=== PATIENT | male | born 1965 | race African-American/Black ===

== ENCOUNTER 2016-07-16 12:54 | Inpatient (IN) | payer MEDICARE, MEDICAID ==
[~2016-07-16] VITALS: Ht 188 cm; Wt 103.3 kg
[~2016-07-16 12:54] MED LIST: AMLO-511 PO; FLUO-191 PO; QUET200T PO
[2016-07-16 13:09] VITALS: BP 128/93
[2016-07-16] MEDS ORDERED: HALOPERIDOL 5 MG TABLET PO PRN (13:45)
[2016-07-16] MEDS ORDERED: ZOLPIDEM TARTRATE 10 MG TABLET PO PRN (13:45)
[2016-07-16 16:13] VITALS: BP 138/83
[2016-07-16] MEDS: QUEtiapine FUMARATE 200 MG TABLET PO SCH (20:05)
[2016-07-17 01:39] VITALS: BP 135/77
[2016-07-17] MEDS ORDERED: -PHARMACY VACCINE NOTE- MISC ONE ×2 (02:15)
[2016-07-17 07:46] LABS: BASOPHILS % (AUTO) 0.6 % (0.0-2.0); EOSINOPHILS % (AUTO) 5.2 % (1.0-6.0); HEMOGLOBIN 12.5 g/dL (13.5-17.5); LYMPHOCYTES % (AUTO) 32.6 % (22.0-44.0); MEAN CORPUSCULAR HEMOGLOBIN 25.9 pg (26.0-34.0); MEAN CORPUSCULAR HGB CONC 32.1 G/dL (31.0-37.0); MEAN CORPUSCULAR VOLUME 81 fL (80-100); MONOCYTES # (AUTO) 0.9 K/uL (0.1-1.0); MONOCYTES % (AUTO) 9.4 % (2.0-9.0); NEUTROPHILS # (AUTO) 4.8 K/uL (1.8-7.7); NEUTROPHILS % (AUTO) 52.2 % (40.0-70.0); PLATELET COUNT (AUTO) 205 K/uL (150-450); RED BLOOD CELL COUNT(AUTO) 4.84 MIL/uL (4.50-5.90); WHITE BLOOD COUNT (AUTO) 9.2 K/uL (4.5-11.0)
[2016-07-17 08:11] LABS: ALANINE AMINOTRANSFERASE 46 U/L (12-78); ALBUMIN 3.4 g/dL (3.4-5.0); ANION GAP 8 mmol/L (8-16); ASPARTATE AMINOTRANSFERASE 50 U/L (15-37); BILIRUBIN,TOTAL 0.3 mg/dL (0.1-1.0); CALCIUM, TOTAL 8.5 mg/dL (8.8-10.5); CARBON DIOXIDE 33 mmol/L (22-29); CHLORIDE 102 mmol/L (98-107); CREATININE 1.24 mg/dL (0.60-1.30); GLOMERULAR FILTR. RATE CALC > 60 mL/min (>60); SODIUM SERUM 143 mmol/L (136-145); UREA NITROGEN, BLOOD 17 mg/dL (7-18)
[2016-07-17 08:13] VITALS: BP 110/69
[2016-07-17 08:22] LABS: POTASSIUM 2.9 mmol/L (3.5-5.1)
[2016-07-17 08:41] LABS: APPEARANCE,URINE CLOUDY (CLEAR); GLUCOSE, URINE (UA) NEGATIVE (NEGATIVE); KETONES,URINE TRACE mg/dL (NEGATIVE); LEUKOCYTE ESTERASE ,URINE NEGATIVE (NEGATIVE); OCCULT BLOOD,URINE NEGATIVE (NEGATIVE); PROTEIN,URINE POS 1+ (NEGATIVE)
[2016-07-17 08:43] LABS: ADD UA MICROSCOPIC YES
[2016-07-17] MEDS ORDERED: POTASSIUM CHLORIDE 20 MEQ ER TABLET PO ONE (08:45)
[2016-07-17] MEDS: FLUoxetine HCL 20 MG CAPSULE PO SCH (08:48)
[2016-07-17] MEDS: QUEtiapine FUMARATE 200 MG TABLET PO SCH ×2 (08:48→20:14)
[2016-07-17 08:53] LABS: FINE GRANULAR CASTS,URINE 0-2 /LPF (None Seen); HYALINE CASTS, URINE 0-2 /LPF (None Seen); RBC,URINE None Seen /HPF (0-2); SQUAMOUS EPITHELIAL CELL,UR Few /LPF (None Seen); WBC,URINE 0-2 /HPF (0-5)
[2016-07-17] MEDS ORDERED: ACETAMINOPHEN 325 MG TABLET PO PRN (10:30)
[2016-07-17] MEDS ORDERED: IBUPROFEN 400 MG TABLET PO PRN (10:30)
[2016-07-17 16:12] VITALS: BP 135/78
[2016-07-17] MEDS: FERROUS SULFATE 325 MG EC TABLET PO SCH (16:31)
[2016-07-18 00:13] VITALS: BP 119/75
[2016-07-18] MEDS: FERROUS SULFATE 325 MG EC TABLET PO SCH ×2 (06:01→16:16)
[2016-07-18 08:07] LABS: HEMOGLOBIN A1C 5.7 % (4.5-6.2)
[2016-07-18 08:51] LABS: CHOL/HDL RATIO 5.7 (4.2-7.3); POTASSIUM 3.5 mmol/L (3.5-5.1); THYROID STIMULATING HORMONE 0.39 uIU/mL (0.36-3.74)
[2016-07-18 09:30] VITALS: BP 140/80
[2016-07-18] MEDS: AmLODIPine BESYLATE 5 MG TABLET PO SCH (09:34)
[2016-07-18] MEDS: QUEtiapine FUMARATE 200 MG TABLET PO SCH ×2 (09:35→20:02)
[2016-07-18] MEDS: FLUoxetine HCL 20 MG CAPSULE PO SCH (09:35)
[2016-07-18 16:20] VITALS: BP 130/71
[2016-07-19 03:00] VITALS: BP 114/79
[2016-07-19] MEDS: LORazepam 2 MG TABLET PO PRN ×2 (03:07→08:57)
[2016-07-19] MEDS: FERROUS SULFATE 325 MG EC TABLET PO SCH (06:13)
[2016-07-19 08:30] VITALS: BP 155/90
[2016-07-19] MEDS: QUEtiapine FUMARATE 200 MG TABLET PO SCH (08:57)
[2016-07-19] MEDS: FLUoxetine HCL 20 MG CAPSULE PO SCH (08:57)
[2016-07-19] MEDS: AmLODIPine BESYLATE 5 MG TABLET PO SCH (08:57)
[2016-07-19] MEDS ORDERED: FLUO-191 PO (09:15)
[2016-07-19] MEDS ORDERED: QUET200T29 PO (09:15)
[2016-07-19] MEDS ORDERED: FERS325 PO (09:24)
== END 2016-07-19 09:50 | disposition home or self-care (01) | DRG 885 ==
LOC: B2X 13:41 → EDSTATUS 14:06
DX: F25.1 Schizoaffective disorder, depressive type (principal); R45.851 Suicidal ideations; R74.0 Nonspecific elevation of levels of transaminase and lactic acid dehydrogenase [LDH]; D64.9 Anemia, unspecified; E87.6 Hypokalemia; I10 Essential (primary) hypertension; F31.9 Bipolar disorder, unspecified; F15.90 Other stimulant use, unspecified, uncomplicated; Z98.890 Other specified postprocedural states; Z71.51 Drug abuse counseling and surveillance of drug abuser; Z91.5 Personal history of self-harm; Z83.3 Family history of diabetes mellitus; Z82.49 Family history of ischemic heart disease and other diseases of the circulatory system
CPT/HCPCS: 83036; 84132; 84443

== ENCOUNTER 2016-08-14 02:41 | Inpatient (IN) | payer MEDICARE, OTHER ==
[~2016-08-14] VITALS: Ht 180.3 cm; Wt 90.9 kg
[~2016-08-14 02:41] MED LIST changes: +FERR-89 PO; +QUET200T29 PO
[2016-08-14 03:41] LABS: BASOPHILS % (AUTO) 0.3 % (0.0-2.0); EOSINOPHILS % (AUTO) 0.8 % (1.0-6.0); HEMATOCRIT 38.6 % (41-53); HEMOGLOBIN 12.2 g/dL (13.5-17.5); LYMPHOCYTES # (AUTO) 2.1 K/uL (1.0-4.8); LYMPHOCYTES % (AUTO) 17.2 % (22.0-44.0); MEAN CORPUSCULAR HEMOGLOBIN 25.2 pg (26.0-34.0); MEAN CORPUSCULAR HGB CONC 31.4 G/dL (31.0-37.0); MEAN CORPUSCULAR VOLUME 80 fL (80-100); MONOCYTES # (AUTO) 1.2 K/uL (0.1-1.0); MONOCYTES % (AUTO) 10.1 % (2.0-9.0); NEUTROPHILS # (AUTO) 8.7 K/uL (1.8-7.7); NEUTROPHILS % (AUTO) 71.6 % (40.0-70.0); PLATELET COUNT (AUTO) 205 K/uL (150-450); RED BLOOD CELL COUNT(AUTO) 4.83 MIL/uL (4.50-5.90); RED CELL DISTRIBUTION WIDTH 13.4 % (11.5-14.5); WHITE BLOOD COUNT (AUTO) 12.2 K/uL (4.5-11.0)
[2016-08-14] MEDS ORDERED: ZOLPIDEM TARTRATE 10 MG TABLET PO PRN (04:00)
[2016-08-14] MEDS ORDERED: HALOPERIDOL 5 MG TABLET PO PRN (04:00)
[2016-08-14] MEDS ORDERED: LORazepam 2 MG TABLET PO PRN (04:00)
[2016-08-14 04:08] LABS: ALANINE AMINOTRANSFERASE 57 U/L (12-78); ALBUMIN 3.7 g/dL (3.4-5.0); ANION GAP 9 mmol/L (8-16); ASPARTATE AMINOTRANSFERASE 76 U/L (15-37); BILIRUBIN,TOTAL 0.4 mg/dL (0.1-1.0); CALCIUM, TOTAL 8.8 mg/dL (8.8-10.5); CARBON DIOXIDE 31 mmol/L (22-29); CHLORIDE 103 mmol/L (98-107); GLOMERULAR FILTR. RATE CALC 38 mL/min (>60); SODIUM SERUM 143 mmol/L (136-145); TOTAL PROTEIN, SERUM 8.1 g/dL (6.4-8.2); UREA NITROGEN, BLOOD 20 mg/dL (7-18)
[2016-08-14 04:10] LABS: POTASSIUM 2.3 mmol/L (3.5-5.1)
[2016-08-14] MEDS ORDERED: SODIUM CHLORIDE 0.9% 1,000 ML IV ONE ×2 (04:15→04:30)
[2016-08-14] MEDS ORDERED: POTASSIUM CHLORIDE 10% 40 MEQ/30 ML LIQUID UDCUP PO ONE (04:15)
[2016-08-14] MEDS: POTASSIUM CHL 10 MEQ/WATER 50 ML IV SCH ×2 (04:39→09:33)
[2016-08-14 08:20] LABS: CALCIUM, TOTAL 8.4 mg/dL (8.8-10.5); CHOL/HDL RATIO 3.2 (4.2-7.3); CREATININE 2.04 mg/dL (0.60-1.30)
[2016-08-14 08:57] LABS: ADD UA MICROSCOPIC YES; APPEARANCE,URINE CLEAR (CLEAR); GLUCOSE, URINE (UA) NEGATIVE (NEGATIVE); KETONES,URINE NEGATIVE (NEGATIVE); LEUKOCYTE ESTERASE ,URINE NEGATIVE (NEGATIVE); OCCULT BLOOD,URINE TRACE (NEGATIVE); PROTEIN,URINE SEE CONFIRM (NEGATIVE)
[2016-08-14 08:59] LABS: SULFOSALICYLIC ACID,URINE 1+ (Negative)
[2016-08-14 09:01] LABS: WBC,URINE 0-2 /HPF (0-5)
[2016-08-14 09:24] LABS: POTASSIUM 2.7 mmol/L (3.5-5.1)
[2016-08-14] MEDS ORDERED: POTASSIUM CHLORIDE 20 MEQ ER TABLET PO ONE ×2 (09:30→12:30)
[2016-08-14 12:04] LABS: CALCIUM, TOTAL 8.3 mg/dL (8.8-10.5); CREATININE 1.96 mg/dL (0.60-1.30)
[2016-08-14 12:09] LABS: POTASSIUM 2.6 mmol/L (3.5-5.1)
[2016-08-14] MEDS ORDERED: ACETAMINOPHEN 325 MG TABLET PO PRN ×2 (15:00→20:00)
[2016-08-14] MEDS ORDERED: 0.9% SODIUM CHLORIDE 10 ML SYRINGE IVP PRN (15:00)
[2016-08-14] MEDS ORDERED: ONDANSETRON HCL 4 MG/2 ML VIAL IVP PRN (15:00)
[2016-08-14] MEDS ORDERED: BISACODYL 10 MG RECTAL RECTAL SUPPOSITORY PR PRN (20:00)
[2016-08-14] MEDS ORDERED: ALBUTEROL SULFATE 2.5 MG/0.5 ML NEB SOLUTION NEB PRN (20:00)
[2016-08-14] MEDS: DOCUSATE SODIUM 100 MG CAPSULE PO SCH (20:39)
[2016-08-14] MEDS: QUEtiapine FUMARATE 300 MG TABLET PO SCH (20:39)
[2016-08-14] MEDS: AmLODIPine BESYLATE 5 MG TABLET PO SCH (21:30)
[2016-08-14] MEDS: SODIUM CHLORIDE 0.45% 1,000 ML IV SCH (23:30)
[2016-08-14] MEDS: POTASSIUM CHL 10 MEQ/WATER 50 ML IV PRN (23:36)
[2016-08-14 23:43] VITALS: BP 120/74
[2016-08-15] MEDS: POTASSIUM CHL 10 MEQ/WATER 50 ML IV PRN ×11 (00:28→23:41)
[2016-08-15 05:08] VITALS: BP 113/73
[2016-08-15 07:34] LABS: BASOPHILS # (AUTO) 0.07 K/uL (0.00-0.20); BASOPHILS % (AUTO) 0.7 % (0.0-2.0); EOSINOPHILS # (AUTO) 0.44 K/uL (0.00-0.70); EOSINOPHILS % (AUTO) 4.41 % (1.0-6.0); HEMATOCRIT 35.6 % (41-53); HEMOGLOBIN 11.9 g/dL (13.5-17.5); LYMPHOCYTES # (AUTO) 2.5 K/uL (1.0-4.8); MEAN CORPUSCULAR HEMOGLOBIN 26.5 pg (26.0-34.0); MEAN CORPUSCULAR HGB CONC 33.4 G/dL (31.0-37.0); MEAN CORPUSCULAR VOLUME 79 fL (80-100); MONOCYTES % (AUTO) 9.7 % (2.0-9.0); NEUTROPHILS # (AUTO) 5.9 K/uL (1.8-7.7); NEUTROPHILS % (AUTO) 60.2 % (40.0-70.0); PLATELET COUNT (AUTO) 219 K/uL (150-450); RED BLOOD CELL COUNT(AUTO) 4.48 MIL/uL (4.50-5.90); RED CELL DISTRIBUTION WIDTH 13.2 % (11.5-14.5); WHITE BLOOD COUNT (AUTO) 9.9 K/uL (4.5-11.0)
[2016-08-15 07:53] LABS: ANION GAP 10 mmol/L (8-16); CALCIUM, TOTAL 8.3 mg/dL (8.8-10.5); CARBON DIOXIDE 29 mmol/L (22-29); CHLORIDE 106 mmol/L (98-107); CREATININE 1.45 mg/dL (0.60-1.30); GLOMERULAR FILTR. RATE CALC > 60 mL/min (>60); SODIUM SERUM 145 mmol/L (136-145); UREA NITROGEN, BLOOD 17 mg/dL (7-18)
[2016-08-15 08:19] VITALS: BP 107/58
[2016-08-15 08:26] LABS: POTASSIUM 2.9 mmol/L (3.5-5.1)
[2016-08-15] MEDS: QUEtiapine FUMARATE 100 MG TABLET PO SCH (08:55)
[2016-08-15] MEDS: AmLODIPine BESYLATE 5 MG TABLET PO SCH (08:55)
[2016-08-15] MEDS: DOCUSATE SODIUM 100 MG CAPSULE PO SCH ×2 (08:55→20:31)
[2016-08-15] MEDS: PANTOPRAZOLE SODIUM 40 MG DR TABLET PO SCH (08:55)
[2016-08-15] MEDS: SODIUM CHLORIDE 0.45% 1,000 ML IV SCH ×2 (09:01→17:36)
[2016-08-15 11:29] VITALS: BP 110/59
[2016-08-15 15:58] VITALS: BP 115/61
[2016-08-15 20:08] VITALS: BP 123/63
[2016-08-15] MEDS: QUEtiapine FUMARATE 300 MG TABLET PO SCH (20:31)
[2016-08-16] VITALS (7 sets, daily range): BP systolic 118–130; BP diastolic 60–85
[2016-08-16] MEDS: SODIUM CHLORIDE 0.45% 1,000 ML IV SCH ×3 (01:00→23:59)
[2016-08-16] MEDS: DOCUSATE SODIUM 100 MG CAPSULE PO SCH ×2 (08:15→20:28)
[2016-08-16] MEDS: QUEtiapine FUMARATE 100 MG TABLET PO SCH (08:15)
[2016-08-16] MEDS: PANTOPRAZOLE SODIUM 40 MG DR TABLET PO SCH (08:15)
[2016-08-16] MEDS: AmLODIPine BESYLATE 5 MG TABLET PO SCH (08:15)
[2016-08-16] MEDS: POTASSIUM CHL 10 MEQ/WATER 50 ML IV PRN ×2 (08:16→10:26)
[2016-08-16] MEDS ORDERED: SODIUM CHLORIDE 0.9% 500 ML IV ONE (10:20)
[2016-08-16] MEDS: POTASSIUM CHLORIDE 10% 40 MEQ/30 ML LIQUID UDCUP PO SCH ×2 (12:09→20:28)
[2016-08-16] MEDS: OxyCODONE HCL/ACETAMINOPHEN 5-325 MG TABLET PO PRN (20:28)
[2016-08-16] MEDS: QUEtiapine FUMARATE 200 MG TABLET PO SCH (20:32)
[2016-08-17 04:31] VITALS: BP 123/55
[2016-08-17 07:15] LABS: ANION GAP 8 mmol/L (8-16); CALCIUM, TOTAL 8.6 mg/dL (8.8-10.5); CARBON DIOXIDE 31 mmol/L (22-29); CHLORIDE 103 mmol/L (98-107); CREATININE 1.19 mg/dL (0.60-1.30); GLOMERULAR FILTR. RATE CALC > 60 mL/min (>60); POTASSIUM 3.1 mmol/L (3.5-5.1); SODIUM SERUM 142 mmol/L (136-145); UREA NITROGEN, BLOOD 10 mg/dL (7-18)
[2016-08-17 07:23] VITALS: BP 115/68
[2016-08-17] MEDS: SODIUM CHLORIDE 0.45% 1,000 ML IV SCH (08:00)
[2016-08-17] MEDS: DOCUSATE SODIUM 100 MG CAPSULE PO SCH ×3 (09:00→10:00)
[2016-08-17] MEDS: FLUoxetine HCL 20 MG CAPSULE PO SCH ×3 (09:00→11:20)
[2016-08-17] MEDS: POTASSIUM CHLORIDE 10% 40 MEQ/30 ML LIQUID UDCUP PO SCH ×3 (09:00→10:00)
[2016-08-17] MEDS: PANTOPRAZOLE SODIUM 40 MG DR TABLET PO SCH ×3 (09:00→10:00)
[2016-08-17] MEDS: QUEtiapine FUMARATE 200 MG TABLET PO SCH ×4 (09:00→20:08)
[2016-08-17] MEDS: QUEtiapine FUMARATE 100 MG TABLET PO SCH ×2 (09:00→09:28)
[2016-08-17] MEDS: OxyCODONE HCL/ACETAMINOPHEN 5-325 MG TABLET PO PRN ×2 (09:30→10:23)
[2016-08-17] MEDS: POTASSIUM CHLORIDE 20 MEQ ER TABLET PO PRN ×3 (09:31→11:19)
[2016-08-17 10:49] VITALS: BP 131/90
[2016-08-17 14:58] VITALS: BP 141/96
[2016-08-17 20:17] VITALS: BP 123/65
[2016-08-17 23:58] VITALS: BP 139/76
[2016-08-18 05:18] VITALS: BP 118/64
[2016-08-18 07:45] VITALS: BP 139/85
[2016-08-18] MEDS: QUEtiapine FUMARATE 200 MG TABLET PO SCH (08:43)
[2016-08-18] MEDS: POTASSIUM CHLORIDE 10% 40 MEQ/30 ML LIQUID UDCUP PO SCH (08:43)
[2016-08-18] MEDS: DOCUSATE SODIUM 100 MG CAPSULE PO SCH (08:43)
[2016-08-18 11:34] VITALS: BP 134/78
== END 2016-08-18 13:42 | disposition home or self-care (01) | DRG 683 ==
LOC: EMS 02:43 → 6N 06:15 → 3EX 06:15 → 6N 15:00
PROVIDERS: ADMIT Hospitalist; ATTEND Hospitalist
DX: N17.9 Acute kidney failure, unspecified (principal); E87.0 Hyperosmolality and hypernatremia; R45.851 Suicidal ideations; E87.6 Hypokalemia; F15.10 Other stimulant abuse, uncomplicated; F17.210 Nicotine dependence, cigarettes, uncomplicated; I10 Essential (primary) hypertension; F19.10 Other psychoactive substance abuse, uncomplicated; F25.1 Schizoaffective disorder, depressive type; G40.909 Epilepsy, unspecified, not intractable, without status epilepticus; Z91.19 Patient's noncompliance with other medical treatment and regimen; Z91.5 Personal history of self-harm; Z87.820 Personal history of traumatic brain injury; Z79.899 Other long term (current) drug therapy
CPT/HCPCS: 84132; 93005; 99285; G0480; J3480; J7030; J7040

== ENCOUNTER 2016-09-27 12:02 | Inpatient (IN) | payer MEDICARE, MEDICAID ==
[~2016-09-27] VITALS: Ht 188 cm; Wt 106.4 kg
[~2016-09-27 12:02] MED LIST changes: -AMLO-511 PO; +AmLODIPine BESYLATE 5 MG TABLET PO SCH; -FERR-89 PO; -QUET200T PO
[2016-09-27 12:44] LABS: BASOPHILS % (AUTO) 0.6 % (0.0-2.0); EOSINOPHILS % (AUTO) 2.1 % (1.0-6.0); HEMATOCRIT 36.3 % (41-53); HEMOGLOBIN 12.2 g/dL (13.5-17.5); LYMPHOCYTES # (AUTO) 3.4 K/uL (1.0-4.8); LYMPHOCYTES % (AUTO) 32.9 % (22.0-44.0); MEAN CORPUSCULAR HEMOGLOBIN 26.5 pg (26.0-34.0); MEAN CORPUSCULAR HGB CONC 33.7 G/dL (31.0-37.0); MEAN CORPUSCULAR VOLUME 79 fL (80-100); MONOCYTES # (AUTO) 0.9 K/uL (0.1-1.0); MONOCYTES % (AUTO) 8.9 % (2.0-9.0); NEUTROPHILS # (AUTO) 5.7 K/uL (1.8-7.7); NEUTROPHILS % (AUTO) 55.5 % (40.0-70.0); PLATELET COUNT (AUTO) 248 K/uL (150-450); RED BLOOD CELL COUNT(AUTO) 4.61 MIL/uL (4.50-5.90); RED CELL DISTRIBUTION WIDTH 13.7 % (11.5-14.5); WHITE BLOOD COUNT (AUTO) 10.4 K/uL (4.5-11.0)
[2016-09-27 12:59] LABS: ALANINE AMINOTRANSFERASE 36 U/L (12-78); ALBUMIN 3.8 g/dL (3.4-5.0); ANION GAP 10 mmol/L (8-16); ASPARTATE AMINOTRANSFERASE 33 U/L (15-37); BILIRUBIN,TOTAL 0.3 mg/dL (0.1-1.0); CALCIUM, TOTAL 8.5 mg/dL (8.8-10.5); CARBON DIOXIDE 31 mmol/L (22-29); CHLORIDE 106 mmol/L (98-107); SODIUM SERUM 147 mmol/L (136-145); TOTAL PROTEIN, SERUM 7.9 g/dL (6.4-8.2); UREA NITROGEN, BLOOD 11 mg/dL (7-18)
[2016-09-27 13:02] LABS: POTASSIUM 2.5 mmol/L (3.5-5.1)
[2016-09-27 13:04] LABS: CREATININE 1.29 mg/dL (0.60-1.30); GLOMERULAR FILTR. RATE CALC > 60 mL/min (>60)
[2016-09-27] MEDS ORDERED: POTASSIUM CHLORIDE 20 MEQ ER TABLET PO ONE ×2 (13:15→22:00)
[2016-09-27] MEDS ORDERED: LORazepam 2 MG TABLET PO ONE (14:00)
[2016-09-27] MEDS ORDERED: HALOPERIDOL 5 MG TABLET PO ONE (14:00)
[2016-09-27] MEDS ORDERED: LORazepam 2 MG TABLET PO PRN ×2 (14:30→17:45)
[2016-09-27] MEDS ORDERED: HALOPERIDOL 5 MG TABLET PO PRN (14:30)
[2016-09-27] MEDS ORDERED: ZOLPIDEM TARTRATE 10 MG TABLET PO PRN ×2 (14:30→17:45)
[2016-09-27 16:21] VITALS: BP 156/85
[2016-09-27] MEDS ORDERED: -PHARMACY VACCINE NOTE- MISC ONE ×2 (16:45)
[2016-09-27] MEDS ORDERED: HydrOXYzine PAMOATE 50 MG CAPSULE PO PRN (17:15)
[2016-09-27] MEDS ORDERED: GuaiFENesin/D-METHORPHAN [SUGAR-FREE] 200-20MG/10 ML SYRUP UDCUP PO PRN (17:15)
[2016-09-27] MEDS ORDERED: QUEtiapine FUMARATE 100 MG TABLET PO PRN (17:15)
[2016-09-27] MEDS ORDERED: MAG HYDROX/AL HYDROX/SIMETH ES 30 ML SUSPENSION UDCUP PO PRN (17:15)
[2016-09-27] MEDS ORDERED: MAGNESIUM HYDROXIDE SUSPENSION 30 ML UDCUP PO PRN (17:15)
[2016-09-27] MEDS ORDERED: PROMETHAZINE HCL 25 MG TABLET PO PRN (17:15)
[2016-09-27] MEDS ORDERED: LOPERAMIDE HCL 2 MG CAPSULE PO PRN (17:15)
[2016-09-27] MEDS ORDERED: ACETAMINOPHEN 325 MG TABLET PO PRN (17:15)
[2016-09-27] MEDS ORDERED: TUBERCULIN, PURIFIED PROTEIN DERIVATIVE 5 TU/0.1 ML SYG ID ONE (17:15)
[2016-09-27] MEDS ORDERED: OLANZapine 5 MG RAPDIS TABLET PO PRN (17:45)
[2016-09-27] MEDS ORDERED: CloNIDine HCL 0.1 MG TABLET PO PRN (18:15)
[2016-09-27 20:49] VITALS: BP 149/103
[2016-09-27] MEDS ORDERED: QUEtiapine FUMARATE 200 MG TABLET PO SCH ×2 (21:00)
[2016-09-28 07:37] LABS: HEMOGLOBIN A1C 5.5 % (4.5-6.2)
[2016-09-28 07:51] LABS: ANION GAP 7 mmol/L (8-16); CALCIUM, TOTAL 8.2 mg/dL (8.8-10.5); CARBON DIOXIDE 30 mmol/L (22-29); CHLORIDE 106 mmol/L (98-107); CHOL/HDL RATIO 4.3 (4.2-7.3); CREATININE 1.19 mg/dL (0.60-1.30); GLOMERULAR FILTR. RATE CALC > 60 mL/min (>60); SODIUM SERUM 143 mmol/L (136-145); THYROID STIMULATING HORMONE 1.37 uIU/mL (0.36-3.74); UREA NITROGEN, BLOOD 10 mg/dL (7-18)
[2016-09-28 08:10] VITALS: BP 147/90
[2016-09-28 08:23] LABS: POTASSIUM 2.8 mmol/L (3.5-5.1)
[2016-09-28] MEDS: FLUoxetine HCL 20 MG CAPSULE PO SCH (08:57)
[2016-09-28] MEDS: MULTIVITAMINS WITH MINERALS, THERAPEUTIC TABLET PO SCH (08:57)
[2016-09-28] MEDS: AmLODIPine BESYLATE 10 MG TABLET PO SCH (08:57)
[2016-09-28] MEDS: THIAMINE HCL 100 MG TABLET PO SCH ×2 (08:57→16:23)
[2016-09-28] MEDS: FOLIC ACID 1 MG TABLET PO SCH (08:57)
[2016-09-28] MEDS: POTASSIUM CHLORIDE 20 MEQ ER TABLET PO SCH (09:24)
[2016-09-28 17:00] VITALS: BP 154/106
[2016-09-28] MEDS ORDERED: CARVEDILOL 6.25 MG TABLET PO SCH (17:00)
[2016-09-28] MEDS ORDERED: QUEtiapine FUMARATE 300 MG TABLET PO SCH (21:00)
[2016-09-29 08:30] VITALS: BP 144/93
[2016-09-29] MEDS: MULTIVITAMINS WITH MINERALS, THERAPEUTIC TABLET PO SCH (08:59)
[2016-09-29] MEDS: AmLODIPine BESYLATE 10 MG TABLET PO SCH (08:59)
[2016-09-29] MEDS: CARVEDILOL 12.5 MG TABLET PO SCH ×2 (09:00→16:34)
[2016-09-29] MEDS: FLUoxetine HCL 20 MG CAPSULE PO SCH (09:00)
[2016-09-29] MEDS: FOLIC ACID 1 MG TABLET PO SCH (09:00)
[2016-09-29] MEDS: POTASSIUM CHLORIDE 20 MEQ ER TABLET PO SCH (09:00)
[2016-09-29] MEDS: THIAMINE HCL 100 MG TABLET PO SCH ×2 (09:01→16:34)
[2016-09-29 09:02] LABS: HEPATITIS Bs ANTIGEN SCREEN P Negative (Negative); HEPATITIS C AB SCREEN <0.1 s/co ratio (0.0-0.9)
[2016-09-29] MEDS ORDERED: FLUO-191 PO (11:22)
[2016-09-29] MEDS ORDERED: QUET200T PO (11:22)
[2016-09-29 19:11] VITALS: BP 135/79
[2016-09-29] MEDS ORDERED: QUEtiapine FUMARATE 200 MG TABLET PO SCH (21:00)
[2016-09-30] MEDS ORDERED: CARV12 PO (05:57)
[2016-09-30] MEDS ORDERED: AMLO-512 PO (05:58)
[2016-09-30] MEDS ORDERED: QUET200T PO (06:00)
[2016-09-30 06:04] VITALS: BP 135/87
[2016-09-30 07:46] LABS: ALANINE AMINOTRANSFERASE 36 U/L (12-78); ALBUMIN 3.5 g/dL (3.4-5.0); ANION GAP 7 mmol/L (8-16); ASPARTATE AMINOTRANSFERASE 26 U/L (15-37); BILIRUBIN,TOTAL 0.4 mg/dL (0.1-1.0); CALCIUM, TOTAL 8.6 mg/dL (8.8-10.5); CARBON DIOXIDE 29 mmol/L (22-29); CHLORIDE 106 mmol/L (98-107); CREATINE KINASE MB 1.6 ng/mL (0-5); CREATINE KINASE, TOTAL 501 U/L (39-308); CREATININE 1.18 mg/dL (0.60-1.30); GLOMERULAR FILTR. RATE CALC > 60 mL/min (>60); POTASSIUM 3.1 mmol/L (3.5-5.1); SODIUM SERUM 142 mmol/L (136-145); TOTAL PROTEIN, SERUM 7.6 g/dL (6.4-8.2); UREA NITROGEN, BLOOD 10 mg/dL (7-18)
[2016-09-30] MEDS ORDERED: KDUR20 PO (08:05)
[2016-09-30 08:20] VITALS: BP 134/75
[2016-09-30] MEDS: FLUoxetine HCL 20 MG CAPSULE PO SCH (08:31)
[2016-09-30] MEDS: POTASSIUM CHLORIDE 20 MEQ ER TABLET PO SCH (08:31)
[2016-09-30] MEDS: THIAMINE HCL 100 MG TABLET PO SCH (08:31)
[2016-09-30] MEDS: MULTIVITAMINS WITH MINERALS, THERAPEUTIC TABLET PO SCH (08:31)
[2016-09-30] MEDS: FOLIC ACID 1 MG TABLET PO SCH (08:31)
[2016-09-30] MEDS: AmLODIPine BESYLATE 10 MG TABLET PO SCH (08:32)
[2016-09-30] MEDS: CARVEDILOL 12.5 MG TABLET PO SCH (08:32)
[2016-10-01] MEDS ORDERED: POTASSIUM CHLORIDE 20 MEQ ER TABLET PO SCH (09:00)
== END 2016-09-30 15:44 | disposition home or self-care (01) | DRG 885 ==
LOC: EEVIPCON 12:04 → EMS 12:04 → AHU 15:16 → 3EX 16:48
PROVIDERS: ADMIT Psychiatry & Neurology Psychiatry; ATTEND Psychiatry & Neurology Psychiatry
DX: F20.0 Paranoid schizophrenia (principal); E87.0 Hyperosmolality and hypernatremia; R45.851 Suicidal ideations; F17.210 Nicotine dependence, cigarettes, uncomplicated; F15.10 Other stimulant abuse, uncomplicated; E87.6 Hypokalemia; E86.0 Dehydration; E66.9 Obesity, unspecified; E55.9 Vitamin D deficiency, unspecified; F19.10 Other psychoactive substance abuse, uncomplicated; F32.9 Major depressive disorder, single episode, unspecified; D64.9 Anemia, unspecified; R45.850 Homicidal ideations; I10 Essential (primary) hypertension; Z59.0 Homelessness; Z65.3 Problems related to other legal circumstances; Z68.30 Body mass index [BMI] 30.0-30.9, adult; Z79.899 Other long term (current) drug therapy; Z91.19 Patient's noncompliance with other medical treatment and regimen; Z87.828 Personal history of other (healed) physical injury and trauma; Z71.6 Tobacco abuse counseling; Z83.3 Family history of diabetes mellitus
CPT/HCPCS: 80074; 82306; 82607; 82746; 83036; 83735; 84439; 84443; 93005; 99285; G0480

== ENCOUNTER 2018-06-15 08:27 | Inpatient (IN) | payer MEDICARE, MEDICAID ==
[~2018-06-15] VITALS: Ht 188 cm; Wt 99.7 kg
[~2018-06-15 08:27] MED LIST changes: +AMLO-512 PO; -AmLODIPine BESYLATE 5 MG TABLET PO SCH; +CARV12 PO; +PANT40TA25 PO; +QUET200T PO; -QUET200T29 PO
[2018-06-15 09:21] LABS: BASOPHILS % (AUTO) 1.4 % (0.0-2.0); EOSINOPHILS % (AUTO) 2.7 % (1.0-6.0); HEMATOCRIT 37.4 % (41-53); HEMOGLOBIN 12.3 g/dL (13.5-17.5); LYMPHOCYTES % (AUTO) 31.4 % (22.0-44.0); MEAN CORPUSCULAR HEMOGLOBIN 25.6 pg (26.0-34.0); MEAN CORPUSCULAR HGB CONC 32.9 G/dL (31.0-37.0); MEAN CORPUSCULAR VOLUME 78 fL (80-100); MONOCYTES # (AUTO) 1.3 K/uL (0.1-1.0); MONOCYTES % (AUTO) 13.6 % (2.0-9.0); NEUTROPHILS # (AUTO) 4.9 K/uL (1.8-7.7); NEUTROPHILS % (AUTO) 50.9 % (40.0-70.0); PLATELET COUNT (AUTO) 213 K/uL (150-450); RED BLOOD CELL COUNT(AUTO) 4.81 MIL/uL (4.50-5.90); RED CELL DISTRIBUTION WIDTH 14.4 % (11.5-14.5)
[2018-06-15 09:29] LABS: ANION GAP 10 mmol/L (8-16); CALCIUM, TOTAL 8.9 mg/dL (8.8-10.5); CARBON DIOXIDE 28 mmol/L (22-29); CHLORIDE 107 mmol/L (98-107); CREATININE 1.35 mg/dL (0.60-1.30); GLOMERULAR FILTR. RATE CALC > 60 mL/min (>60); GLUCOSE,RANDOM 84 mg/dL (70-110); POTASSIUM 3.2 mmol/L (3.5-5.1); SODIUM SERUM 145 mmol/L (136-145); UREA NITROGEN, BLOOD 14 mg/dL (7-18)
[2018-06-15 09:35] LABS: ALANINE AMINOTRANSFERASE 29 U/L (12-78); ALBUMIN 3.7 g/dL (3.4-5.0); ALKALINE PHOSPHATASE 88 U/L (46-116); ASPARTATE AMINOTRANSFERASE 36 U/L (15-37); BILIRUBIN,TOTAL 0.3 mg/dL (0.1-1.0); TOTAL PROTEIN, SERUM 7.8 g/dL (6.4-8.2)
[2018-06-15 09:38] LABS: AMPHET/METH SCREEN,URINE POSITIVE (NEGATIVE); BARBITURATE SCREEN, URINE NEGATIVE (NEGATIVE); BENZODIAZEPINES SCREEN,URINE NEGATIVE (NEGATIVE); CANNABINOID SCREEN,URINE NEGATIVE (NEGATIVE); COCAINE SCREEN,URINE NEGATIVE (NEGATIVE); METHADONE SCREEN, URINE NEGATIVE (NEGATIVE); OPIATE SCREEN,URINE NEGATIVE (NEGATIVE)
[2018-06-15 09:39] LABS: PHENCYCLIDINE SCREEN,URINE NEGATIVE (NEGATIVE)
[2018-06-15] MEDS ORDERED: POTASSIUM CHLORIDE 20 MEQ ER TABLET PO ONE (10:30)
[2018-06-15] MEDS ORDERED: LORazepam 2 MG TABLET PO PRN (10:45)
[2018-06-15] MEDS ORDERED: ZOLPIDEM TARTRATE 10 MG TABLET PO PRN (10:45)
[2018-06-15] MEDS ORDERED: HALOPERIDOL 5 MG TABLET PO PRN (10:45)
[2018-06-15 15:59] VITALS: BP 132/87
[2018-06-15] MEDS ORDERED: DOCUSATE SODIUM 100 MG CAPSULE PO PRN (16:30)
[2018-06-15] MEDS ORDERED: ACETAMINOPHEN 325 MG TABLET PO PRN (16:30)
[2018-06-15] MEDS ORDERED: LOPERAMIDE HCL 2 MG CAPSULE PO PRN (16:30)
[2018-06-15] MEDS ORDERED: MAGNESIUM HYDROXIDE SUSPENSION 30 ML UDCUP PO PRN (16:30)
[2018-06-15] MEDS ORDERED: PETROLATUM,WHITE 71 GM JELLY TP PRN (16:30)
[2018-06-15] MEDS ORDERED: MAG HYDROX/AL HYDROX/SIMETH ES 30 ML SUSPENSION UDCUP PO PRN (16:30)
[2018-06-15] MEDS ORDERED: CloNIDine HCL 0.1 MG TABLET PO PRN (16:30)
[2018-06-15] MEDS: QUEtiapine FUMARATE 200 MG TABLET PO SCH (20:34)
[2018-06-16] MEDS ORDERED: -PHARMACY VACCINE NOTE- MISC ONE (06:00)
[2018-06-16 06:28] VITALS: BP 128/82
[2018-06-16 08:24] VITALS: BP 140/79
[2018-06-16 09:34] LABS: CHOL/HDL RATIO 6.1 (4.2-7.3); FREE T4 (FREE THYROXINE) 0.85 ng/dL (0.76-1.46); POTASSIUM 3.5 mmol/L (3.5-5.1); THYROID STIMULATING HORMONE 0.91 uIU/mL (0.36-3.74)
[2018-06-16] MEDS: PANTOPRAZOLE SODIUM 40 MG DR TABLET PO SCH (10:43)
[2018-06-16] MEDS: CARVEDILOL 12.5 MG TABLET PO SCH ×2 (10:43→17:15)
[2018-06-16] MEDS: AmLODIPine BESYLATE 10 MG TABLET PO SCH (10:44)
[2018-06-16 16:05] VITALS: BP 123/73
[2018-06-16 19:44] VITALS: BP 118/75
[2018-06-16] MEDS: IBUPROFEN 400 MG TABLET PO PRN (19:46)
[2018-06-16] MEDS: DIVALPROEX SODIUM 500 MG ER TABLET PO SCH (20:40)
[2018-06-16] MEDS: QUEtiapine FUMARATE 200 MG TABLET PO SCH (20:40)
[2018-06-16] MEDS ORDERED: QUEtiapine FUMARATE 200 MG TABLET PO SCH (21:00)
[2018-06-17 01:09] VITALS: BP 119/65
[2018-06-17] MEDS: AmLODIPine BESYLATE 10 MG TABLET PO SCH (08:38)
[2018-06-17] MEDS: PANTOPRAZOLE SODIUM 40 MG DR TABLET PO SCH (08:38)
[2018-06-17] MEDS: CARVEDILOL 12.5 MG TABLET PO SCH ×2 (08:38→16:17)
[2018-06-17 08:39] VITALS: BP 114/71
[2018-06-17] MEDS: IBUPROFEN 400 MG TABLET PO PRN ×2 (12:09→20:11)
[2018-06-17 16:12] VITALS: BP 163/84
[2018-06-17 17:40] VITALS: BP 139/67
[2018-06-17] MEDS: QUEtiapine FUMARATE 200 MG TABLET PO SCH (20:11)
[2018-06-17] MEDS: DIVALPROEX SODIUM 500 MG ER TABLET PO SCH (20:11)
[2018-06-18 01:04] VITALS: BP 118/64
[2018-06-18 08:15] VITALS: BP 156/90
[2018-06-18] MEDS: AmLODIPine BESYLATE 10 MG TABLET PO SCH (08:17)
[2018-06-18] MEDS: PANTOPRAZOLE SODIUM 40 MG DR TABLET PO SCH (08:17)
[2018-06-18] MEDS: CARVEDILOL 12.5 MG TABLET PO SCH ×2 (08:17→16:38)
[2018-06-18 09:32] VITALS: BP 126/79
[2018-06-18 17:25] VITALS: BP 116/76
[2018-06-18] MEDS: DIVALPROEX SODIUM 500 MG ER TABLET PO SCH (20:05)
[2018-06-18] MEDS: QUEtiapine FUMARATE 200 MG TABLET PO SCH (20:05)
[2018-06-19 01:19] VITALS: BP 126/75
[2018-06-19 08:15] VITALS: BP 125/71
[2018-06-19] MEDS: AmLODIPine BESYLATE 10 MG TABLET PO SCH (08:21)
[2018-06-19] MEDS: PANTOPRAZOLE SODIUM 40 MG DR TABLET PO SCH (08:21)
[2018-06-19] MEDS: CARVEDILOL 12.5 MG TABLET PO SCH (08:21)
[2018-06-19] MEDS ORDERED: QUET200T29 PO (09:21)
[2018-06-19] MEDS ORDERED: DIVA500T52 PO (09:21)
== END 2018-06-19 13:00 | disposition home or self-care (01) | DRG 885 ==
LOC: EMS 08:28 → B2X 11:01
DX: F25.1 Schizoaffective disorder, depressive type (principal); F17.210 Nicotine dependence, cigarettes, uncomplicated; F15.10 Other stimulant abuse, uncomplicated; E87.6 Hypokalemia; E78.5 Hyperlipidemia, unspecified; D64.9 Anemia, unspecified; I10 Essential (primary) hypertension; K21.9 Gastro-esophageal reflux disease without esophagitis; Z79.899 Other long term (current) drug therapy; Z81.8 Family history of other mental and behavioral disorders; Z87.820 Personal history of traumatic brain injury; F32.9 Major depressive disorder, single episode, unspecified; Z87.828 Personal history of other (healed) physical injury and trauma; R45.87 Impulsiveness; Z23 Encounter for immunization; Z71.51 Drug abuse counseling and surveillance of drug abuser
CPT/HCPCS: 84132; 84436; 84439; 84443; 90686; 99406; G0480

== ENCOUNTER 2018-10-12 22:56 | Inpatient (IN) | payer MEDICARE, MEDICAID ==
[~2018-10-12] VITALS: Ht 188 cm; Wt 99.8 kg
[~2018-10-12 22:56] MED LIST changes: -AMLO-512 PO; +AMLO10TA7 PO; +DIVA500T52 PO; -FLUO-191 PO; -QUET200T PO; +QUET200T29 PO
[2018-10-12] MEDS ORDERED: CHL25 PO (23:07)
[2018-10-12] MEDS ORDERED: KDUR20 PO (23:07)
[2018-10-12] MEDS ORDERED: BENZ2TAB10 PO (23:07)
[2018-10-12] MEDS ORDERED: QUET200T PO (23:07)
[2018-10-12 23:19] LABS: BASOPHILS % (AUTO) 0.8 % (0.0-2.0); EOSINOPHILS % (AUTO) 3.1 % (1.0-6.0); HEMATOCRIT 35.5 % (41-53); HEMOGLOBIN 11.4 g/dL (13.5-17.5); LYMPHOCYTES # (AUTO) 3.1 K/uL (1.0-4.8); LYMPHOCYTES % (AUTO) 26.3 % (22.0-44.0); MEAN CORPUSCULAR HEMOGLOBIN 25.5 pg (26.0-34.0); MEAN CORPUSCULAR HGB CONC 32.3 G/dL (31.0-37.0); MEAN CORPUSCULAR VOLUME 79 fL (80-100); MONOCYTES # (AUTO) 1.4 K/uL (0.1-1.0); NEUTROPHILS # (AUTO) 6.8 K/uL (1.8-7.7); NEUTROPHILS % (AUTO) 57.8 % (40.0-70.0); PLATELET COUNT (AUTO) 240 K/uL (150-450); RED BLOOD CELL COUNT(AUTO) 4.48 MIL/uL (4.50-5.90); RED CELL DISTRIBUTION WIDTH 13.6 % (11.5-14.5)
[2018-10-12 23:40] LABS: AMPHET/METH SCREEN,URINE POSITIVE (NEGATIVE); BARBITURATE SCREEN, URINE NEGATIVE (NEGATIVE); BENZODIAZEPINES SCREEN,URINE NEGATIVE (NEGATIVE); CANNABINOID SCREEN,URINE NEGATIVE (NEGATIVE); COCAINE SCREEN,URINE NEGATIVE (NEGATIVE); METHADONE SCREEN, URINE NEGATIVE (NEGATIVE); OPIATE SCREEN,URINE NEGATIVE (NEGATIVE); PHENCYCLIDINE SCREEN,URINE NEGATIVE (NEGATIVE)
[2018-10-12 23:43] LABS: ALANINE AMINOTRANSFERASE 26 U/L (12-78); ALBUMIN 4.1 g/dL (3.4-5.0); ALKALINE PHOSPHATASE 90 U/L (46-116); ANION GAP 12 mmol/L (8-16); ASPARTATE AMINOTRANSFERASE 55 U/L (15-37); BILIRUBIN,TOTAL 0.4 mg/dL (0.1-1.0); CALCIUM, TOTAL 9.1 mg/dL (8.8-10.5); CARBON DIOXIDE 25 mmol/L (22-29); CHLORIDE 101 mmol/L (98-107); CREATININE 2.51 mg/dL (0.60-1.30); GLOMERULAR FILTR. RATE CALC 33 mL/min (>60); GLUCOSE,RANDOM 116 mg/dL (70-110); SODIUM SERUM 138 mmol/L (136-145); TOTAL PROTEIN, SERUM 8.2 g/dL (6.4-8.2); UREA NITROGEN, BLOOD 32 mg/dL (7-18)
[2018-10-12 23:53] LABS: POTASSIUM 2.9 mmol/L (3.5-5.1)
[2018-10-12 23:58] LABS: VALPROIC ACID < 3 mcg/mL (50-100)
[2018-10-13] MEDS ORDERED: POTASSIUM CHLORIDE 10% 40 MEQ/30 ML LIQUID UDCUP PO ONE (00:15)
[2018-10-13] MEDS ORDERED: DiphenhydrAMINE HCL 50 MG/ML VIAL IM ONE (00:45)
[2018-10-13] MEDS ORDERED: LORazepam 2 MG/ML VIAL IM ONE (00:45)
[2018-10-13] MEDS ORDERED: HALOPERIDOL LACTATE 5 MG/ML VIAL IM ONE (00:45)
[2018-10-13] MEDS ORDERED: SODIUM CHLORIDE 0.9% 2,000 ML IV ONE (01:00)
[2018-10-13] MEDS ORDERED: BACITRACIN 0.9 GM PACKET OINTMENT TP ONE (01:30)
[2018-10-13 01:40] LABS: CREATINE KINASE, TOTAL ONLY 2487 U/L (39-308)
[2018-10-13] MEDS ORDERED: SODIUM CHLORIDE 0.9% 1,000 ML IV ONE (02:30)
[2018-10-13 03:48] LABS: CALCIUM, TOTAL 8.2 mg/dL (8.8-10.5); CREATININE 1.85 mg/dL (0.60-1.30); POTASSIUM 3.6 mmol/L (3.5-5.1)
[2018-10-13 04:22] LABS: ALBUMIN 3.7 g/dL (3.4-5.0); BILIRUBIN,TOTAL 0.3 mg/dL (0.1-1.0); TOTAL PROTEIN, SERUM 7.6 g/dL (6.4-8.2)
[2018-10-13] MEDS ORDERED: HALOPERIDOL 5 MG TABLET PO PRN (04:30)
[2018-10-13] MEDS ORDERED: ZOLPIDEM TARTRATE 10 MG TABLET PO PRN (04:30)
[2018-10-13] MEDS ORDERED: -PHARMACY VACCINE NOTE- MISC ONE (07:15)
[2018-10-13] MEDS ORDERED: CloNIDine HCL 0.1 MG TABLET PO PRN (07:30)
[2018-10-13] MEDS ORDERED: NICOTINE 14 MG/24 HOUR PATCH TD PRN (07:30)
[2018-10-13] MEDS ORDERED: MAG HYDROX/AL HYDROX/SIMETH ES 30 ML SUSPENSION UDCUP PO PRN (07:30)
[2018-10-13] MEDS ORDERED: ALBUTEROL SULFATE HFA 90 MCG/PUFF 8 GM INHALER IH PRN (07:30)
[2018-10-13] MEDS ORDERED: DOCUSATE SODIUM 100 MG CAPSULE PO PRN (07:30)
[2018-10-13] MEDS ORDERED: ACETAMINOPHEN 325 MG TABLET PO PRN (07:30)
[2018-10-13] MEDS ORDERED: LOPERAMIDE HCL 2 MG CAPSULE PO PRN (07:30)
[2018-10-13] MEDS ORDERED: PETROLATUM,WHITE 28 GM JELLY TP PRN (07:30)
[2018-10-13] MEDS ORDERED: MAGNESIUM HYDROXIDE SUSPENSION 30 ML UDCUP PO PRN (07:30)
[2018-10-13] MEDS ORDERED: GuaiFENesin/D-METHORPHAN [SUGAR-FREE] 200-20MG/10 ML SYRUP UDCUP PO PRN (07:30)
[2018-10-13] MEDS ORDERED: ONDANSETRON HCL 4 MG TABLET PO PRN (07:30)
[2018-10-13] MEDS: IBUPROFEN 400 MG TABLET PO PRN (11:46)
[2018-10-13] MEDS ORDERED: BENZ1TAB10 PO (12:55)
[2018-10-13] MEDS ORDERED: SULFAMETHOX/TRIMETH DS 800-160 MG/TABLET PO ONE (13:00)
[2018-10-13 16:02] LABS: AMPHET/METH SCREEN,URINE POSITIVE (NEGATIVE); BARBITURATE SCREEN, URINE NEGATIVE (NEGATIVE); BENZODIAZEPINES SCREEN,URINE NEGATIVE (NEGATIVE); CANNABINOID SCREEN,URINE NEGATIVE (NEGATIVE); COCAINE SCREEN,URINE NEGATIVE (NEGATIVE); METHADONE SCREEN, URINE NEGATIVE (NEGATIVE); OPIATE SCREEN,URINE NEGATIVE (NEGATIVE)
[2018-10-13 16:03] LABS: APPEARANCE,URINE CLEAR (CLEAR); BILIRUBIN,URINE NEGATIVE (NEGATIVE); GLUCOSE, URINE (UA) NEGATIVE (NEGATIVE); KETONES,URINE NEGATIVE (NEGATIVE); LEUKOCYTE ESTERASE ,URINE NEGATIVE (NEGATIVE); NITRATE,URINE NEGATIVE (NEGATIVE); OCCULT BLOOD,URINE NEGATIVE (NEGATIVE); PROTEIN,URINE NEGATIVE (NEGATIVE)
[2018-10-13 16:04] LABS: PHENCYCLIDINE SCREEN,URINE NEGATIVE (NEGATIVE)
[2018-10-13 16:13] LABS: BACTERIA,URINE None Seen /HPF (None Seen); RBC,URINE None Seen /HPF (0-2); SQUAMOUS EPITHELIAL CELL,UR Rare /LPF (None Seen); WBC,URINE None Seen /HPF (0-5)
[2018-10-13] MEDS: LORazepam 2 MG TABLET PO PRN (16:19)
[2018-10-13 17:00] VITALS: BP 137/58
[2018-10-13] MEDS ORDERED: SULFAMETHOX/TRIMETH DS 800-160 MG/TABLET PO SCH (17:00)
[2018-10-13] MEDS: QUEtiapine FUMARATE 200 MG TABLET PO SCH (21:36)
[2018-10-13] MEDS: BENZTROPINE MESYLATE 1 MG TABLET PO SCH (21:36)
[2018-10-14 06:55] LABS: BASOPHILS % (AUTO) 0.5 % (0.0-2.0); EOSINOPHILS % (AUTO) 8.8 % (1.0-6.0); HEMATOCRIT 38.7 % (41-53); HEMOGLOBIN 12.6 g/dL (13.5-17.5); LYMPHOCYTES # (AUTO) 2.4 K/uL (1.0-4.8); LYMPHOCYTES % (AUTO) 28.8 % (22.0-44.0); MEAN CORPUSCULAR HGB CONC 32.7 G/dL (31.0-37.0); MEAN CORPUSCULAR VOLUME 79 fL (80-100); MONOCYTES # (AUTO) 0.7 K/uL (0.1-1.0); NEUTROPHILS # (AUTO) 4.6 K/uL (1.8-7.7); NEUTROPHILS % (AUTO) 53.9 % (40.0-70.0); PLATELET COUNT (AUTO) 242 K/uL (150-450); RED BLOOD CELL COUNT(AUTO) 4.87 MIL/uL (4.50-5.90); RED CELL DISTRIBUTION WIDTH 13.5 % (11.5-14.5)
[2018-10-14 07:26] LABS: ALANINE AMINOTRANSFERASE 25 U/L (12-78); ALBUMIN 3.3 g/dL (3.4-5.0); ALKALINE PHOSPHATASE 87 U/L (46-116); ANION GAP 12 mmol/L (8-16); ASPARTATE AMINOTRANSFERASE 42 U/L (15-37); BILIRUBIN,TOTAL 0.4 mg/dL (0.1-1.0); CALCIUM, TOTAL 8.4 mg/dL (8.8-10.5); CARBON DIOXIDE 27 mmol/L (22-29); CHLORIDE 104 mmol/L (98-107); CHOL/HDL RATIO 3.3 (4.2-7.3); CHOLESTEROL 130 mg/dL (131-200); CREATININE 1.33 mg/dL (0.60-1.30); GLOMERULAR FILTR. RATE CALC > 60 mL/min (>60); GLUCOSE,RANDOM 80 mg/dL (70-110); HDL CHOLESTEROL 39 mg/dL (40-60); LDL CHOL (CALC.) 79 mg/dL (0-130); POTASSIUM 3.2 mmol/L (3.5-5.1); SODIUM SERUM 143 mmol/L (136-145); THYROID STIMULATING HORMONE 0.48 uIU/mL (0.36-3.74); TOTAL PROTEIN, SERUM 7.1 g/dL (6.4-8.2); TRIGLYCERIDES 62 mg/dL (15-150); UREA NITROGEN, BLOOD 15 mg/dL (7-18)
[2018-10-14 07:28] LABS: HEMOGLOBIN A1C 5.5 % (4.5-6.2)
[2018-10-14 08:00] VITALS: BP 101/74
[2018-10-14] MEDS: POTASSIUM CHLORIDE 20 MEQ ER TABLET PO SCH (08:52)
[2018-10-14] MEDS: AmLODIPine BESYLATE 10 MG TABLET PO SCH (08:52)
[2018-10-14] MEDS: BENZTROPINE MESYLATE 1 MG TABLET PO SCH ×2 (08:52→20:26)
[2018-10-14] MEDS: LORazepam 2 MG TABLET PO PRN (16:03)
[2018-10-14] MEDS: QUEtiapine FUMARATE 200 MG TABLET PO SCH (20:26)
[2018-10-14 22:35] VITALS: BP 128/81
[2018-10-15 03:35] VITALS: BP 155/64
[2018-10-15] MEDS: IBUPROFEN 400 MG TABLET PO PRN (03:43)
[2018-10-15] MEDS ORDERED: TraMADol HCL 50 MG TABLET PO PRN (05:45)
[2018-10-15 07:29] LABS: APPEARANCE,URINE CLEAR (CLEAR); BILIRUBIN,URINE NEGATIVE (NEGATIVE); GLUCOSE, URINE (UA) NEGATIVE (NEGATIVE); KETONES,URINE NEGATIVE (NEGATIVE); LEUKOCYTE ESTERASE ,URINE NEGATIVE (NEGATIVE); NITRATE,URINE NEGATIVE (NEGATIVE); OCCULT BLOOD,URINE NEGATIVE (NEGATIVE); PROTEIN,URINE NEGATIVE (NEGATIVE)
[2018-10-15 07:32] LABS: ANION GAP 8 mmol/L (8-16); CALCIUM, TOTAL 9.2 mg/dL (8.8-10.5); CARBON DIOXIDE 31 mmol/L (22-29); CHLORIDE 106 mmol/L (98-107); CREATININE 1.36 mg/dL (0.60-1.30); GLOMERULAR FILTR. RATE CALC > 60 mL/min (>60); GLUCOSE,RANDOM 111 mg/dL (70-110); POTASSIUM 3.4 mmol/L (3.5-5.1); SODIUM SERUM 145 mmol/L (136-145); UREA NITROGEN, BLOOD 13 mg/dL (7-18)
[2018-10-15] MEDS: AmLODIPine BESYLATE 10 MG TABLET PO SCH (08:01)
[2018-10-15] MEDS: BENZTROPINE MESYLATE 1 MG TABLET PO SCH ×2 (08:01→20:25)
[2018-10-15] MEDS: POTASSIUM CHLORIDE 20 MEQ ER TABLET PO SCH (08:01)
[2018-10-15] MEDS: LORazepam 2 MG TABLET PO PRN (08:01)
[2018-10-15 08:31] LABS: CREATINE KINASE, TOTAL ONLY 891 U/L (39-308)
[2018-10-15 08:53] VITALS: BP 120/90
[2018-10-15] MEDS ORDERED: POTASSIUM CHLORIDE 20 MEQ ER TABLET PO ONE (14:45)
[2018-10-15 16:32] VITALS: BP 122/78
[2018-10-15] MEDS: QUEtiapine FUMARATE 200 MG TABLET PO SCH (20:25)
[2018-10-16 06:37] LABS: ANION GAP 8 mmol/L (8-16); CALCIUM, TOTAL 8.8 mg/dL (8.8-10.5); CARBON DIOXIDE 29 mmol/L (22-29); CHLORIDE 106 mmol/L (98-107); CREATININE 1.16 mg/dL (0.60-1.30); GLOMERULAR FILTR. RATE CALC > 60 mL/min (>60); GLUCOSE,RANDOM 90 mg/dL (70-110); POTASSIUM 3.5 mmol/L (3.5-5.1); SODIUM SERUM 143 mmol/L (136-145); UREA NITROGEN, BLOOD 12 mg/dL (7-18)
[2018-10-16] MEDS: BENZTROPINE MESYLATE 1 MG TABLET PO SCH (07:59)
[2018-10-16] MEDS: POTASSIUM CHLORIDE 20 MEQ ER TABLET PO SCH (07:59)
[2018-10-16] MEDS: AmLODIPine BESYLATE 10 MG TABLET PO SCH (07:59)
[2018-10-16] MEDS: LORazepam 2 MG TABLET PO PRN (08:00)
[2018-10-16 08:53] VITALS: BP 136/75
== END 2018-10-16 17:30 | disposition home or self-care (01) | DRG 885 ==
LOC: EMS 22:59 → 3EI 10-13 04:17 → 3EC 10-15 15:01
DX: F25.1 Schizoaffective disorder, depressive type (principal); M62.82 Rhabdomyolysis; N17.9 Acute kidney failure, unspecified; F15.20 Other stimulant dependence, uncomplicated; R45.851 Suicidal ideations; I10 Essential (primary) hypertension; D64.9 Anemia, unspecified; D72.829 Elevated white blood cell count, unspecified; E78.5 Hyperlipidemia, unspecified; F31.9 Bipolar disorder, unspecified; E86.0 Dehydration; E87.6 Hypokalemia; F17.200 Nicotine dependence, unspecified, uncomplicated; Z71.6 Tobacco abuse counseling; Z79.899 Other long term (current) drug therapy; Z87.820 Personal history of traumatic brain injury; Z91.5 Personal history of self-harm; Z71.51 Drug abuse counseling and surveillance of drug abuser
CPT/HCPCS: 72100; 80307; 83036; 84443; G0480; J1200; J1630; J2060; J7030

== ENCOUNTER 2019-02-12 10:59 | Inpatient (IN) | payer MEDICARE, MEDICAID ==
[~2019-02-12] VITALS: Ht 170.2 cm; Wt 100.0 kg
[~2019-02-12 10:59] MED LIST changes: +BENZ1TAB10 PO; -CARV12 PO; -DIVA500T52 PO; +KDUR20 PO; -PANT40TA25 PO; +QUET200T PO; -QUET200T29 PO
[2019-02-12] MEDS ORDERED: LORazepam 2 MG TABLET PO PRN (14:30)
[2019-02-12] MEDS ORDERED: ZOLPIDEM TARTRATE 10 MG TABLET PO PRN (14:30)
[2019-02-12] MEDS ORDERED: HALOPERIDOL 5 MG TABLET PO PRN (14:30)
[2019-02-12 15:05] LABS: AMPHET/METH SCREEN,URINE POSITIVE (NEGATIVE); BARBITURATE SCREEN, URINE NEGATIVE (NEGATIVE); BENZODIAZEPINES SCREEN,URINE NEGATIVE (NEGATIVE); CANNABINOID SCREEN,URINE NEGATIVE (NEGATIVE); COCAINE SCREEN,URINE NEGATIVE (NEGATIVE); METHADONE SCREEN, URINE NEGATIVE (NEGATIVE); OPIATE SCREEN,URINE NEGATIVE (NEGATIVE); PHENCYCLIDINE SCREEN,URINE NEGATIVE (NEGATIVE)
[2019-02-12 15:15] LABS: BASOPHILS % (AUTO) 0.8 % (0.0-2.0); HEMATOCRIT 35.1 % (41-53); HEMOGLOBIN 11.5 g/dL (13.5-17.5); LYMPHOCYTES # (AUTO) 2.8 K/uL (1.0-4.8); LYMPHOCYTES % (AUTO) 30.9 % (22.0-44.0); MEAN CORPUSCULAR HEMOGLOBIN 25.6 pg (26.0-34.0); MEAN CORPUSCULAR HGB CONC 32.6 G/dL (31.0-37.0); MEAN CORPUSCULAR VOLUME 78 fL (80-100); MONOCYTES # (AUTO) 1.2 K/uL (0.1-1.0); MONOCYTES % (AUTO) 12.8 % (2.0-9.0); NEUTROPHILS # (AUTO) 4.6 K/uL (1.8-7.7); NEUTROPHILS % (AUTO) 50.5 % (40.0-70.0); PLATELET COUNT (AUTO) 206 K/uL (150-450); RED BLOOD CELL COUNT(AUTO) 4.48 MIL/uL (4.50-5.90); RED CELL DISTRIBUTION WIDTH 14.2 % (11.5-14.5)
[2019-02-12 15:50] LABS: ALANINE AMINOTRANSFERASE 36 U/L (12-78); ALBUMIN 3.4 g/dL (3.4-5.0); ALKALINE PHOSPHATASE 76 U/L (46-116); ANION GAP 8 mmol/L (8-16); ASPARTATE AMINOTRANSFERASE 56 U/L (15-37); BILIRUBIN,TOTAL 0.3 mg/dL (0.1-1.0); CALCIUM, TOTAL 8.4 mg/dL (8.8-10.5); CARBON DIOXIDE 29 mmol/L (22-29); CHLORIDE 106 mmol/L (98-107); CREATININE 1.11 mg/dL (0.60-1.30); GLOMERULAR FILTR. RATE CALC > 60 mL/min (>60); GLUCOSE,RANDOM 85 mg/dL (70-110); SODIUM SERUM 143 mmol/L (136-145); UREA NITROGEN, BLOOD 17 mg/dL (7-18)
[2019-02-12 17:10] VITALS: BP 161/98
[2019-02-12 19:48] VITALS: BP 135/88
[2019-02-12] MEDS: QUEtiapine FUMARATE 300 MG TABLET PO SCH (20:08)
[2019-02-13 00:24] VITALS: BP 109/69
[2019-02-13] MEDS: POTASSIUM CHLORIDE 20 MEQ ER TABLET PO SCH (08:24)
[2019-02-13] MEDS: AmLODIPine BESYLATE 10 MG TABLET PO SCH (08:24)
[2019-02-13] MEDS: QUEtiapine FUMARATE 200 MG TABLET PO SCH (08:24)
[2019-02-13 08:33] LABS: FREE T4 (FREE THYROXINE) 0.98 ng/dL (0.76-1.46); THYROID STIMULATING HORMONE 0.57 uIU/mL (0.36-3.74)
[2019-02-13 08:46] VITALS: BP 145/78
[2019-02-13 12:29] VITALS: BP 140/88
[2019-02-13] MEDS: BENZTROPINE MESYLATE 1 MG TABLET PO SCH ×2 (15:38→20:17)
[2019-02-13 16:08] VITALS: BP 146/89
[2019-02-13] MEDS ORDERED: IBUPROFEN 600 MG TABLET PO PRN (17:30)
[2019-02-13] MEDS ORDERED: ACETAMINOPHEN 325 MG TABLET PO PRN (17:30)
[2019-02-13] MEDS: QUEtiapine FUMARATE 300 MG TABLET PO SCH (20:17)
[2019-02-13] MEDS ORDERED: PNEUMOCOCCAL VACCINE POLYVALENT 0.5 ML VIAL [PPSV23] IM ONE (23:45)
[2019-02-13] MEDS ORDERED: -PHARMACY VACCINE NOTE- MISC ONE (23:45)
[2019-02-14 06:35] VITALS: BP 131/82
[2019-02-14 08:13] VITALS: BP 139/79
[2019-02-14] MEDS: QUEtiapine FUMARATE 200 MG TABLET PO SCH (08:21)
[2019-02-14] MEDS: AmLODIPine BESYLATE 10 MG TABLET PO SCH (08:22)
[2019-02-14] MEDS: POTASSIUM CHLORIDE 20 MEQ ER TABLET PO SCH (08:22)
[2019-02-14] MEDS: BENZTROPINE MESYLATE 1 MG TABLET PO SCH ×2 (08:22→20:10)
[2019-02-14] MEDS ORDERED: INFLUENZA VIRUS VACCINE QVS 2019-20 (3YR+)/PF 60 MCG/0.5 ML SYRINGE IM ONE (11:30)
[2019-02-14 19:05] VITALS: BP 132/80
[2019-02-14] MEDS: QUEtiapine FUMARATE 300 MG TABLET PO SCH (20:09)
[2019-02-15 00:05] VITALS: BP 130/70
[2019-02-15] MEDS: AmLODIPine BESYLATE 10 MG TABLET PO SCH (08:27)
[2019-02-15] MEDS: BENZTROPINE MESYLATE 1 MG TABLET PO SCH ×2 (08:27→20:08)
[2019-02-15] MEDS: QUEtiapine FUMARATE 200 MG TABLET PO SCH (08:27)
[2019-02-15] MEDS: POTASSIUM CHLORIDE 20 MEQ ER TABLET PO SCH (08:27)
[2019-02-15 08:35] VITALS: BP 118/71
[2019-02-15 17:15] VITALS: BP 141/90
[2019-02-15] MEDS: QUEtiapine FUMARATE 300 MG TABLET PO SCH (20:08)
[2019-02-16 06:16] VITALS: BP 133/77
[2019-02-16 08:19] VITALS: BP 140/80
[2019-02-16] MEDS: QUEtiapine FUMARATE 200 MG TABLET PO SCH (09:42)
[2019-02-16] MEDS: BENZTROPINE MESYLATE 1 MG TABLET PO SCH (09:42)
[2019-02-16] MEDS: AmLODIPine BESYLATE 10 MG TABLET PO SCH (09:42)
[2019-02-16] MEDS: POTASSIUM CHLORIDE 20 MEQ ER TABLET PO SCH (09:42)
[2019-02-16] MEDS ORDERED: BENZ1TAB10 PO (10:11)
[2019-02-16] MEDS ORDERED: QUET300T18 PO (10:11)
[2019-02-16] MEDS ORDERED: QUET200T29 PO (10:11)
[2019-02-16] MEDS ORDERED: QUET300T2 PO (10:52)
== END 2019-02-16 12:30 | disposition home or self-care (01) | DRG 885 ==
LOC: EMS 11:01 → B2S 15:14
PROVIDERS: ADMIT Psychiatry & Neurology Child & Adolescent Psychiatry; ATTEND Psychiatry & Neurology Child & Adolescent Psychiatry
DX: F25.1 Schizoaffective disorder, depressive type (principal); R45.851 Suicidal ideations; D64.9 Anemia, unspecified; E87.6 Hypokalemia; F15.90 Other stimulant use, unspecified, uncomplicated; F17.210 Nicotine dependence, cigarettes, uncomplicated; I10 Essential (primary) hypertension; M54.5 Low back pain; F32.9 Major depressive disorder, single episode, unspecified; F41.9 Anxiety disorder, unspecified; M54.9 Dorsalgia, unspecified; Z83.3 Family history of diabetes mellitus; Z87.820 Personal history of traumatic brain injury; Z87.828 Personal history of other (healed) physical injury and trauma; Z79.899 Other long term (current) drug therapy; Z28.21 Immunization not carried out because of patient refusal
CPT/HCPCS: 84132; 84439; 84443; G0480